=== PATIENT | male | born 1960 | race Caucasian/White ===

== ENCOUNTER 2024-07-01 15:17 | Inpatient (IN) | payer MEDICARE, MEDICAID ==
[2024-07-01] MEDS ORDERED: Sodium Chloride 0.9% 10 ML Syringe FLUSH PRN (15:32)
[2024-07-01] MEDS: Lactated Ringers 1,000 ML IV SCH (16:46)
[2024-07-01] MEDS: Piperacillin/Tazobactam 4.5 GM in Sodium Chloride 0.9% 100 ML IV ONE (16:46)
[2024-07-01] MEDS ORDERED: Magnesium Hydroxide 400 MG/5 ML Susp 30 ML Cup PO PRN (17:34)
[2024-07-01] MEDS ORDERED: Bisacodyl 5 MG Tab PO PRN (17:34)
[2024-07-01] MEDS ORDERED: 50% Dextrose in Water 50 ML Syringe IVPUSH PRN (18:31)
[2024-07-01] MEDS ORDERED: Glucagon,Human Recombinant 1 MG Vial IM PRN (18:31)
[2024-07-01] MEDS ORDERED: Albuterol 0.083% 2.5 MG/3 ML Neb Soln NEB PRN (18:58)
[2024-07-01] MEDS: Melatonin 3 MG Tab PO SCH (20:34)
[2024-07-01] MEDS: atorvaSTATin 40 MG Tab PO SCH (20:34)
[2024-07-01] MEDS: Docusate Sodium 100 MG Cap PO SCH (20:35)
[2024-07-01] MEDS: Piperacillin/Tazobactam 4.5 GM in Sodium Chloride 0.9% 100 ML IV SCH (20:43)
[2024-07-02 07:54] LABS: BASOPHILS PERCENT AUTO 0.2 % (0.2-1.2); EOSINOPHILS ABSOLUTE AUTO 0.2 x10^3/uL (0.0-0.5); EOSINOPHILS PERCENT AUTO 1.6 % (0.0-4.0); HEMATOCRIT 36.7 % (40.0-52.0); HEMOGLOBIN 12.6 g/dL (14.0-18.0); IMMATURE GRAN ABSOLUTE AUTO 0.08 x10^3/uL (0.00-0.07); LYMPHOCYTES ABSOLUTE AUTO 1.5 x10^3/uL (1.0-4.8); LYMPHOCYTES PERCENT AUTO 11.7 % (25.0-50.0); MEAN CORPUSCULAR HEMOGLOBIN 30.5 pg (26.0-32.0); MEAN CORPUSCULAR HGB CONC 34.3 g/dL (32.0-36.0); MEAN CORPUSCULAR VOLUME 88.9 fL (78.0-93.0); MONOCYTES ABSOLUTE AUTO 1.4 x10^3/uL (0.0-0.8); MONOCYTES PERCENT AUTO 10.5 % (2.0-11.0); NEUTROPHILS ABSOLUTE AUTO 9.7 x10^3/uL (1.8-7.7); NEUTROPHILS PERCENT AUTO 75.4 % (50.0-80.0); PLATELET COUNT,PLT 181 x10^3/uL (130-400); RED BLOOD CELL COUNT 4.13 x10^6/uL (4.5-6.0); WHITE BLOOD CELL COUNT,WBC 12.8 x10^3/uL (4.0-10.0)
[2024-07-02] MEDS: Insulin Regular, Human 100 Units/ML 10 ML Vial SUBCUT SCH (08:00)
[2024-07-02 08:08] LABS: CALCIUM 8.8 mg/dL (8.5-10.1); EST CRCL DRUG DOSING (CG) 72.66 mL/min; POTASSIUM,K 4.1 mmol/L (3.5-5.1)
[2024-07-02 08:10] LABS: ANION GAP 13.1 mmol/L (5-15)
[2024-07-02] MEDS: AMANTADINE HCL 100 MG PO SCH ×2 (09:00→12:46)
[2024-07-02] MEDS: Enoxaparin 40 MG/0.4 ML Syringe SUBCUT SCH (10:00)
[2024-07-02] MEDS: Escitalopram 10 MG Tab PO SCH (10:00)
[2024-07-02] MEDS: Tamsulosin 0.4 MG Cap.ER PO SCH (10:00)
[2024-07-02] MEDS: Aspirin 81 MG Tab.EC PO SCH (10:00)
[2024-07-02] MEDS: amLODIPine 5 MG Tab PO SCH (10:00)
[2024-07-02] MEDS: Thiamine 100 MG Tab PO SCH (10:50)
[2024-07-02] MEDS: Multivitamin Tab PO SCH (10:50)
[2024-07-02] MEDS: Cyanocobalamin (Vitamin B12) 250 MCG Tab PO SCH (10:50)
[2024-07-02] MEDS: Folic Acid 1 MG Tab PO SCH (10:50)
[2024-07-02] MEDS: Albuterol/Ipratropium 3.0-0.5 MG/3 ML Neb Soln NEB PRN (12:01)
[2024-07-03 08:00] LABS: HEMATOCRIT 37.2 % (40.0-52.0); HEMOGLOBIN 12.8 g/dL (14.0-18.0); MEAN CORPUSCULAR HEMOGLOBIN 30.6 pg (26.0-32.0); MEAN CORPUSCULAR HGB CONC 34.4 g/dL (32.0-36.0); RED BLOOD CELL COUNT 4.18 x10^6/uL (4.5-6.0); WHITE BLOOD CELL COUNT,WBC 10.4 x10^3/uL (4.0-10.0)
[2024-07-03 08:18] LABS: CALCIUM 8.8 mg/dL (8.5-10.1); CREATININE 0.9 mg/dL (0.70-1.30); EST CRCL DRUG DOSING (CG) 80.74 mL/min
[2024-07-03] MEDS: Lisinopril 10 MG Tab PO SCH (09:44)
[2024-07-04 07:15] LABS: HEMATOCRIT 40.3 % (40.0-52.0); HEMOGLOBIN 13.6 g/dL (14.0-18.0); MEAN CORPUSCULAR HEMOGLOBIN 30.2 pg (26.0-32.0); MEAN CORPUSCULAR HGB CONC 33.7 g/dL (32.0-36.0); MEAN CORPUSCULAR VOLUME 89.6 fL (78.0-93.0); RED BLOOD CELL COUNT 4.5 x10^6/uL (4.5-6.0)
[2024-07-04 07:20] LABS: CALCIUM 9.1 mg/dL (8.5-10.1); EST CRCL DRUG DOSING (CG) 72.66 mL/min
== END 2024-07-04 10:15 | DRG 177 ==
LOC: VM.MS 15:17
PROVIDERS: ADMIT Nurse Practitioner Family; ATTEND Internal Medicine
DX: J69.0 Pneumonitis due to inhalation of food and vomit (principal); J96.01 Acute respiratory failure with hypoxia; N17.9 Acute kidney failure, unspecified; I69.351 Hemiplegia and hemiparesis following cerebral infarction affecting right dominant side; I69.319 Unspecified symptoms and signs involving cognitive functions following cerebral infarction; I69.320 Aphasia following cerebral infarction; I10 Essential (primary) hypertension; E78.2 Mixed hyperlipidemia; E11.65 Type 2 diabetes mellitus with hyperglycemia; R45.86 Emotional lability; R26.89 Other abnormalities of gait and mobility; E87.5 Hyperkalemia; Z79.82 Long term (current) use of aspirin; Z79.899 Other long term (current) drug therapy
CPT/HCPCS: 36415; 80048; 82947; 83605; 83735; 85025; 85027; 87040; 87070; 94760; A9270-GY; J1650; J2543; J3490; J7120; J7620-GY

== ENCOUNTER 2024-11-25 17:07 | Emergency (ER) | payer MEDICARE, MEDICAID ==
[2024-11-25 17:39] LABS: BASOPHILS PERCENT AUTO 0.1 % (0.2-1.2); EOSINOPHILS PERCENT AUTO 0.1 % (0.0-4.0); HEMATOCRIT 42.5 % (40.0-52.0); HEMOGLOBIN 14.2 g/dL (14.0-18.0); IMMATURE GRAN ABSOLUTE AUTO 0.12 x10^3/uL (0.00-0.07); LYMPHOCYTES ABSOLUTE AUTO 0.6 x10^3/uL (1.0-4.8); LYMPHOCYTES PERCENT AUTO 3.5 % (25.0-50.0); MEAN CORPUSCULAR HEMOGLOBIN 29.8 pg (26.0-32.0); MEAN CORPUSCULAR HGB CONC 33.4 g/dL (32.0-36.0); MEAN CORPUSCULAR VOLUME 89.1 fL (78.0-93.0); MONOCYTES ABSOLUTE AUTO 1.8 x10^3/uL (0.0-0.8); MONOCYTES PERCENT AUTO 10.6 % (2.0-11.0); NEUTROPHILS ABSOLUTE AUTO 14.6 x10^3/uL (1.8-7.7); PLATELET COUNT,PLT 141 x10^3/uL (130-400); RED BLOOD CELL COUNT 4.77 x10^6/uL (4.5-6.0); WHITE BLOOD CELL COUNT,WBC 17.2 x10^3/uL (4.0-10.0)
[2024-11-25 18:02] LABS: A/G RATIO 0.57; ALANINE AMINOTRANSFERASE,ALT 43 U/L (16-63); ALBUMIN 2.6 g/dL (3.4-5.0); ALKALINE PHOSPHATASE 125 U/L (46-116); ANION GAP 12.2 mmol/L (5-15); ASPARTATE AMNIOTRANSFERASE,AST 14 U/L (15-37); BILIRUBIN TOTAL 0.8 mg/dL (0.2-1.0); BLOOD UREA NITROGEN,BUN 25 mg/dL (7-18); CALCIUM 8.9 mg/dL (8.5-10.1); CARBON DIOXIDE,CO2 27 mmol/L (21-32); CHLORIDE,CL 98 mmol/L (98-107); CREATININE 1.5 mg/dL (0.70-1.30); MAGNESIUM 2.3 mg/dL (1.8-2.4); POTASSIUM,K 4.2 mmol/L (3.5-5.1); PROTEIN TOTAL,TP 7.2 g/dL (6.4-8.2); SODIUM,NA 133 mmol/L (136-145)
[2024-11-25 18:04] LABS: ESTIMATED GFR 51 mL/min (>=60); GLUCOSE RANDOM 435 mg/dL (70-99)
[2024-11-25] MEDS ORDERED: 50% Dextrose in Water 50 ML Syringe IVPUSH PRN (18:04)
[2024-11-25] MEDS ORDERED: Glucagon,Human Recombinant 1 MG Vial IM PRN (18:04)
[2024-11-25] MEDS: Sodium Chloride 0.9% 1,000 ML IV ONE (18:20)
[2024-11-25] MEDS: Insulin Lispro 100 Units/ML 3 ML Vial SUBCUT ONE (18:23)
[2024-11-25 19:36] LABS: APPEARANCE,URINE TURBID (CLEAR); BILIRUBIN,URINE NEGATIVE (NEGATIVE); COLOR,URINE YELLOW (YELLOW); GLUCOSE,URINE >=1000 mg/dL (NEGATIVE); KETONES,URINE NEGATIVE (NEGATIVE); LEUKOCYTE ESTERASE,URINE TRACE (NEGATIVE); NITRITE,URINE POSITIVE (NEGATIVE); OCCULT BLOOD,URINE MODERATE (NEGATIVE); PROTEIN,URINE 100 mg/dL (NEGATIVE); UROBILINOGEN,URINE 0.2 EU/dL (0.2)
[2024-11-25] MEDS: cefTRIAXone 2 GM Vial IVPUSH ONE (20:00)
[2024-11-25 20:18] LABS: BACTERIA,URINE MANY /HPF (NOT SEEN); RBC,URINE 0-5 /HPF (NOT SEEN); SQUAMOUS EPITHELIAL CELLS,UR RARE /HPF (NOT SEEN); WBC CASTS,URINE MODERATE /HPF (NOT SEEN)
== END 2024-11-25 21:48 ==
LOC: VM.ED 17:07
DX: N39.0 Urinary tract infection, site not specified (principal); I10 Essential (primary) hypertension; E11.65 Type 2 diabetes mellitus with hyperglycemia; E78.00 Pure hypercholesterolemia, unspecified; Z79.82 Long term (current) use of aspirin; Z79.899 Other long term (current) drug therapy
CPT/HCPCS: 36415; 80053; 81001; 82947; 83605; 83735; 85025; 87086; 87088; 87186; 87428; 96361; 96374; 99285; J0696; J1815; J7030; 71045; 99284